=== PATIENT | female | born 1940 | race Caucasian/White ===

== ENCOUNTER → 2016-06-27 | Outpatient (CLI) | payer MEDICARE ==
[~2016-06-27] MED LIST: NONE PER PT
== END | disposition home or self-care (01) ==
LOC: STAR 08:16
PROVIDERS: ATTEND Orthopaedic Surgery
DX: Z01.818 Encounter for other preprocedural examination (principal); M19.011 Primary osteoarthritis, right shoulder
CPT/HCPCS: 87081; 87147; 93005

== ENCOUNTER 2016-07-03 05:37 | Inpatient (IN) | payer MEDICARE ==
[2016-06-27 09:22] VITALS: BP 137/83
[~2016-07-03] VITALS: Ht 162.6 cm; Wt 78.0 kg
[2016-07-03] MEDS ORDERED: BUPIVACAINE/PF 0.5% ONE (06:07)
[2016-07-03] MEDS ORDERED: FENTANYL PF 250 MCG/5ML ONE (06:10)
[2016-07-03] MEDS ORDERED: MIDAZOLAM 1 MG/ML, 2ML ONE ×2 (06:11)
[2016-07-03] MEDS ORDERED: CLINDAMYCIN 150 MG/ML, 6ML ONE (06:12)
[2016-07-03] MEDS ORDERED: LIDOCAINE 1%, 2ML ONE (06:24)
[2016-07-03] MEDS ORDERED: LACTATED RINGERS 1,000 ML IV SCH (06:25)
[2016-07-03] MEDS ORDERED: LIDOCAINE 1%, 2ML SQ PRN (06:30)
[2016-07-03] MEDS ORDERED: VANCOMYCIN PER PHARMACY MC STA (06:34)
[2016-07-03] MEDS ORDERED: ONDANSETRON 2MG/ML, 2ML ONE (06:55)
[2016-07-03] MEDS ORDERED: EPHEDRINE 50 MG/ML, 1ML ONE (06:55)
[2016-07-03] MEDS ORDERED: PROPOFOL 10 MG/ML, 20ML ONE (06:55)
[2016-07-03] MEDS ORDERED: CEFAZOLIN 1,000 MG ONE (06:55)
[2016-07-03] MEDS ORDERED: DEXAMETHASONE 4 MG/ML, 5ML ONE (06:55)
[2016-07-03] MEDS ORDERED: SUCCINYLCHOLINE 20 MG/ML, 10ML ONE (06:55)
[2016-07-03] MEDS ORDERED: ONDANSETRON 2MG/ML, 2ML IV PRN (07:00)
[2016-07-03] MEDS ORDERED: morphine SULFATE 10 MG/ML, 1ML IV PRN (07:00)
[2016-07-03] MEDS ORDERED: SENNA/DOCUSATE TABLET PO PRN (07:00)
[2016-07-03] MEDS ORDERED: BISACODYL 10 MG SUPP PR PRN (07:00)
[2016-07-03] MEDS ORDERED: ACETAMINOPHEN 325 MG TABLET PO PRN ×2 (07:00→08:00)
[2016-07-03] MEDS ORDERED: VANCOMYCIN 1,200 MG in SODIUM CHLORIDE 0.9% 250 ML IV ONE (07:00)
[2016-07-03] MEDS ORDERED: HYDROcodone/APAP 10/325 MG TABLET PO PRN (07:00)
[2016-07-03] MEDS ORDERED: MAGNESIUM HYDROXIDE 8%, 30ML UDC PO PRN (07:00)
[2016-07-03] MEDS ORDERED: OXYcodone 5 MG/5 ML ORAL.SOL UDC PO PRN (08:00)
[2016-07-03] MEDS ORDERED: MIDAZOLAM 1 MG/ML, 2ML IV PRN (08:00)
[2016-07-03] MEDS ORDERED: ONDANSETRON 2MG/ML, 2ML IVPush PRN (08:00)
[2016-07-03] MEDS ORDERED: LABETALOL 5MG/ML, 20ML IV PRN (08:00)
[2016-07-03] MEDS ORDERED: PROMETHAZINE 25 MG/ML, 1ML IV PRN (08:00)
[2016-07-03] MEDS ORDERED: HYDROmorphone 1 MG/ML, 1ML IV PRN (08:00)
[2016-07-03] MEDS ORDERED: hydrALAzine 20 MG/ML, 1ML IV PRN (08:00)
[2016-07-03] MEDS ORDERED: FENTANYL PF 100 MCG/2ML IV PRN (08:00)
[2016-07-03] MEDS ORDERED: METOCLOPRAMIDE 5 MG/ML, 2ML IV PRN (08:00)
[2016-07-03] MEDS ORDERED: MEPERIDINE/PF 25MG/0.5ML IVPush PRN (08:00)
[2016-07-03] MEDS ORDERED: ALBUTEROL/IPRATROPIUM 2.5MG/0.5MG, 3 ML NPPB PRN (08:00)
[2016-07-03] MEDS ORDERED: EPHEDRINE 50 MG/ML, 1ML IVPush PRN (08:00)
[2016-07-03] MEDS: DOCUSATE 100 MG CAPSULE PO SCH ×2 (09:00→21:19)
[2016-07-03] MEDS ORDERED: OXYcodone 5 MG/5 ML ORAL.SOL UDC ONE (10:05)
[2016-07-03] MEDS: KETOROLAC 30 MG/1 ML IV SCH ×2 (12:24→21:19)
[2016-07-03 12:25] VITALS: BP 106/61
[2016-07-03] MEDS: D5%-0.45% NACL 1,000 ML IV SCH ×2 (12:25→16:52)
[2016-07-03] MEDS: CEFAZOLIN PMX 1GM/50ML 50 ML IVPB SCH ×2 (16:21→23:41)
[2016-07-03 18:49] VITALS: BP 108/63
[2016-07-03 23:22] VITALS: BP 108/66
[2016-07-04] MEDS: D5%-0.45% NACL 1,000 ML IV SCH ×2 (02:52→12:52)
[2016-07-04 04:16] VITALS: BP 125/74
[2016-07-04] MEDS ORDERED: KETOROLAC 30 MG/1 ML IV SCH (05:30)
[2016-07-04] MEDS: KETOROLAC 30 MG/1 ML IV SCH (06:31)
[2016-07-04] MEDS: CEFAZOLIN PMX 1GM/50ML 50 ML IVPB SCH (06:31)
[2016-07-04 07:31] VITALS: BP 115/70
[2016-07-04] MEDS: DOCUSATE 100 MG CAPSULE PO SCH (10:31)
[2016-07-04 12:51] VITALS: BP 112/64
== END 2016-07-04 13:17 | disposition home or self-care (01) | DRG 483 ==
LOC: ORIP 05:37 → 4NOR 10:24 → DCLOUNGE 07-04 13:05
PROVIDERS: ADMIT Orthopaedic Surgery; ATTEND Orthopaedic Surgery
PROC: 0LS30ZZ Reposition Right Upper Arm Tendon, Open Approach (ICD-10-PCS; 2016-07-03)
PROC: 0RCJ0ZZ Extirpation of Matter from Right Shoulder Joint, Open Approach (ICD-10-PCS; 2016-07-03)
PROC: 0RRJ0JZ Replacement of Right Shoulder Joint with Synthetic Substitute, Open Approach (ICD-10-PCS; principal; 2016-07-03 07:00)
DX: M19.011 Primary osteoarthritis, right shoulder (principal); M75.20 Bicipital tendinitis, unspecified shoulder; M24.011 Loose body in right shoulder
CPT/HCPCS: C1713; C1776; J0690; J1100; J1885; J2250; J2405; J2704; J3010; J3370; J3490; J0330; J7050; J7120

== ENCOUNTER → 2020-09-20 | Outpatient (CLI) | payer MEDICARE ==
[2020-09-20 08:20] LABS: BASOPHILS % (AUTO) 1 % (0-1); EOSINOPHILS % (AUTO) 2 % (1-7); LYMPHOCYTES % (AUTO) 27 % (22-44); MEAN CORPUSCULAR HEMOGLOBIN 29.2 pg (27.0-34.8); MEAN CORPUSCULAR HGB CONC 33.6 g/dL (32.4-35.8); MEAN PLATELET VOLUME 7.8 fL (7.4-10.4); MONOCYTES % (AUTO) 8 % (2-9); NEUTROPHILS % (AUTO) 63 % (42-75); PLATELET COUNT 259 x10^3/uL (130-400); RED BLOOD COUNT 5.07 x10^6/uL (3.82-5.3); RED CELL DISTRIBUTION WIDTH 13.4 % (9.6-15.2)
[2020-09-20 08:31] LABS: INTERNATIONAL NORMALIZED RATIO 0.97 (0.93-1.1); PROTHROMBIN TIME 10.4 Seconds (9.6-11.5)
[2020-09-20 08:32] LABS: ANION GAP 5 mmol/L (5-15); CALCIUM 9.7 mg/dL (8.5-10.1); CHLORIDE 106 mmol/L (98-107); CREATININE 0.63 mg/dL (0.55-1.02)
== END | disposition home or self-care (01) ==
LOC: STAR 07:13
PROVIDERS: ATTEND Orthopaedic Surgery
DX: Z01.818 Encounter for other preprocedural examination (principal)
CPT/HCPCS: 36415; 80048; 83036; 85025; 85610; 85730; 87081; 93005

== ENCOUNTER 2020-09-25 11:33 | Day surgery (SDC) | payer MEDICARE ==
[~2020-09-25] VITALS: Ht 162.6 cm; Wt 74.9 kg
[~2020-09-25 11:33] MED LIST changes: +BUPIVACAINE LIPOSOME/PF 10ML INFIL ONE; +CLINDAMYCIN 150 MG/ML, 6ML ONE
[2020-09-25 11:57] VITALS: BP 126/83
[2020-09-25] MEDS ORDERED: ACETAMINOPHEN 325 MG TABLET PO PRN (12:00)
[2020-09-25] MEDS ORDERED: ALBUTEROL SULFATE 2.5 MG/3 ML NPPB PRN (12:00)
[2020-09-25] MEDS ORDERED: MIDAZOLAM 1 MG/ML, 2ML IV PRN (12:00)
[2020-09-25] MEDS ORDERED: OXYcodone 5 MG/5 ML ORAL.SOL UDC PO PRN (12:00)
[2020-09-25] MEDS ORDERED: MEPERIDINE/PF 25MG/0.5ML IVPush PRN (12:00)
[2020-09-25] MEDS ORDERED: CHLORHEXIDINE 15 ML UDC PO ONE (12:00)
[2020-09-25] MEDS ORDERED: PROMETHAZINE 25 MG/ML, 1ML IVPush PRN (12:00)
[2020-09-25] MEDS ORDERED: HYDROmorphone 1 MG/ML, 1ML INJ IVPush PRN (12:00)
[2020-09-25] MEDS ORDERED: LACTATED RINGERS 1,000 ML IV SCH (12:00)
[2020-09-25] MEDS ORDERED: LABETALOL 5MG/ML, 20ML IV PRN (12:00)
[2020-09-25] MEDS ORDERED: FENTANYL PF 100 MCG/2ML IV PRN (12:00)
[2020-09-25] MEDS ORDERED: FENTANYL PF 100 MCG/2ML ONE (12:33)
[2020-09-25] MEDS ORDERED: MIDAZOLAM 1 MG/ML, 2ML ONE (12:33)
[2020-09-25] MEDS ORDERED: EPHEDRINE 50 MG/ML, 1ML ONE (13:32)
[2020-09-25] MEDS ORDERED: LIDOCAINE-MPF 2% ,5ML ONE ×2 (14:25→14:48)
[2020-09-25] MEDS ORDERED: DEXAMETHASONE 4 MG/ML, 1ML ONE (14:48)
[2020-09-25] MEDS ORDERED: CEFAZOLIN 1,000 MG ONE (14:48)
[2020-09-25] MEDS ORDERED: PROPOFOL 10 MG/ML, 20ML ONE (14:48)
[2020-09-25] MEDS ORDERED: BUPIVACAINE/PF 0.5% ONE (14:48)
[2020-09-25] MEDS ORDERED: NEOSTIGMINE 1 MG/ML, 10ML ONE (14:48)
[2020-09-25] MEDS ORDERED: ROCURONIUM 10MG/ML,5ML ONE (14:48)
[2020-09-25] MEDS ORDERED: ONDANSETRON 2MG/ML, 2ML ONE (14:48)
[2020-09-25] MEDS ORDERED: GLYCOPYRROLATE 0.2MG/1ML, 5ML ONE (14:48)
== END 2020-09-25 17:00 | disposition home or self-care (01) ==
LOC: OUT 11:33
PROVIDERS: ATTEND Orthopaedic Surgery
DX: M19.012 Primary osteoarthritis, left shoulder (principal); M25.712 Osteophyte, left shoulder; J45.909 Unspecified asthma, uncomplicated; Z79.899 Other long term (current) drug therapy; Z96.611 Presence of right artificial shoulder joint
CPT/HCPCS: 23472; 64415; C1713; C1769; C1776; J0690; J1100; J2250; J2405; J2704; J2710; J3010; J7120